=== PATIENT | male | born 1975 | race Caucasian/White ===

== ENCOUNTER 2018-04-17 06:51 | Emergency (ER) | payer BC, SELFPAY ==
[2018-04-17 06:57] VITALS: BP 139/86; PULSE 75; RESP 18; TEMP 36.4; O2SAT 98
--- NOTE | 2018-04-17 07:05 | DI.CT_ITS ---
SYMPTOMS/DIAGNOSIS: LEFT SUBMANDIBULAR SWELLING AND PAIN NECK CT: There is airway narrowing extending from the nasopharynx through the glottis. No focal abscess or hematoma is seen. The findings may be secondary to diffuse inflammation and edema. The submandibular and parotid glands, as well as thyroid, are unremarkable. The lung apices appear clear. No adenopathy is seen. The orbits, sinuses and visualized portions of the brain, as well as mastoid air cells, are unremarkable. No vascular stenosis is seen. IMPRESSION: Airway narrowing without evidence of a focal abscess or mass. The findings may be secondary to diffuse inflammation and/or edema.
--- NOTE | 2018-04-17 07:11 | ED.GENADUL_ITS ---
Discharge Plan Disposition Patient Disposition: HOME Discharge Details Chief Complaint: Sorethroat Clinical Impression: Acute streptococcal pharyngitis Primary Care Provider: Zev Negrete ED Provider: Rubin Bennett Home Meds and New Rx's Prescriptions: No Action No Known Home Meds RF: 0 Discharge Instructions Instructions: Pharyngitis (ED) Additional Instructions: Please drink plenty of fluid and allow for plenty of rest. Take ibuprofen 600 mg every 6 hours as needed for pain and inflammation. Please contact your primary care physician to arrange follow-up. Return to the ER for any worsening or new concerning symptoms. Stand Alone Forms: Work Release Discharge Data Discharge Date/Time-TO BE ENTERED AT DEPARTURE: 04/17/18 09:11 Medical Decision Making <Edmar Alcocer MD - Last Filed: 04/17/18 07:59> 43-year-old male presents from home with severe left-sided throat discomfort and swelling this morning. He is afebrile and well-appearing. Differential diagnosis includes streptococcal or other pharyngitis, retropharyngeal or danger space infection. IV access was established, strep screening obtained, patient referred for laboratory testing and CT imaging of neck. Does have positive rapid strep test. His laboratories are notable for unremarkable CBC and a creatinine of 1.3 for which I will encourage him to have an outpatient recheck. To be signed out to Dr. Bennett pending review of his CT scan. <Rubin Bennett MD - Last Filed: 04/20/18 21:42> CT interpreted by radiology: The nasopharynx and oropharynx appear effaced, the effacement is likely reflecting diffuse pharyngeal mucosal edema/inflammation, rather than focal and no obvious peritonsillar or pharyngeal abscess is evident. At the level of the supraglottic trachea and the hypopharynx the airway is narrowed and clinical correlation recommended to assess for respiratory difficulties which may reflect a narrowed upper airway. Patient reassessed remained stable. He notes some improvement in his speech, less hoarse. Speaking clearly and with no respiratory difficulty. Strep positive. Plan at this time is to treat with penicillin IM for strep pharyngitis. Patient has received decadron. I will have care management assist in arranging routine outpatient primary care physician follow-up HPI <Edmar Alcocer MD - Last Filed: 04/17/18 07:59> General Mode of arrival: ambulatory . Date/Time Provider Initiated Documentation: 04/17/18 06:58 . Limitations to Documentation: no limitations . Information obtained by: patient . History of Present Illness 43 year old M presents to the emergency department with the chief complaint of Left throat pain, described as severe, Quality is described as aching, and is localized to the neck and left. Patient reports no radiation. and it has been constant. No relieving factors improve symptom(s), Other factors that worsen symptoms (Worse with swallowing) . HPI Narrative: This is a 43-year-old male who states that he awoke today with severe left throat pain and swelling. He has been able to swallow but it increases the discomfort. He has had mild hoarseness to his voice. A Will endorse a recent upper respiratory illness Related Data Home Medications Medication Instructions Recorded Confirmed Unknown [No Known Home Meds] 04/02/17 04/17/18 Allergies Allergy/AdvReac Type Severity Reaction Status Date / Time No Known Drug Allergies Allergy Verified 04/17/18 06:57 General Stated Complaint: Sorethroat PUMA: 5 Review of Systems <Edmar Alcocer MD - Last Filed: 04/17/18 07:59> Review of Systems 6 systems reviewed and otherwise - Exam <Edmar Alcocer MD - Last Filed: 04/17/18 07:59> Narrative Exam Narrative: GEN: awake, alert, oriented 3. Pleasant, well groomed, interactive. HEAD: Normocephalic, atraumatic ENT: Mucous membranes moist, oropharynx with left greater than right erythema, slightly prominent left tonsil, External ear exam unremarkable, tympanic membranes clear bilaterally EYES: PERRL, EOMI NECK: Full ROM, tender left submandibular anterior lymphadenopathy, no menigismus CHEST/RESP: Nontender, clear to auscultation bilateral, no wheeze/rhonchi/rales CARDIOVASCULAR: RRR, no murmur, rub tommy. 2+ Rad pulse bilateral ABDOMEN: Soft, nontender, no mass. +Bowel sounds EXT: Full ROM, no edema, no rash Neuro: Grossly normal neurologic exam, conversant, interactive. Psych: Speech fluent, thoughts congruent, affect normal Course <Edmar Alcocer MD - Last Filed: 04/17/18 07:59> Vital Signs Temperature 36.4 C L 04/17/18 06:57 Pulse 75 04/17/18 06:57 Respiratory Rate 18 04/17/18 06:57 Blood Pressure 139/86 04/17/18 06:57 Pulse Oximetry 98 04/17/18 06:57 Temperature 36.4 C L 04/17/18 06:57 Temperature Source Temporal Artery Scan 04/17/18 06:57 Pulse 75 04/17/18 06:57 Respiratory Rate 18 04/17/18 06:57 Respiratory Effort 04/17/18 06:57 Blood Pressure 139/86 04/17/18 06:57 Blood Pressure Position Sitting 04/17/18 06:57 Pulse Oximetry 98 04/17/18 06:57 Oxygen Delivery Method Room Air 04/17/18 06:57 Oxygen Flow Rate 0 04/17/18 06:57 Sign Out <Edmar Alcocer MD - Last Filed: 04/17/18 07:59> Sign Out Data: Sign Out Comment: Please follow-up CT results. Reexamination. Last updated by Edmar Alcocer MD at 04/17/18 07:58
[2018-04-17 07:32] LABS: Abs Immature Grans 0.02 k/cumm (0.0-0.09); Absolute Basophil Count 0.02 k/cumm (0.0-0.2); Absolute Eosinophil Count 0.17 k/cumm (0.0-0.7); Absolute Lymphocyte Count 2.26 k/cumm (1.2-3.4); Absolute Monocyte Count 0.35 k/cumm (0.11-0.7); Absolute Neutrophil Count 3.57 k/cumm (1.2-6.7); Basophils % 0.3; Eosinophils % 2.7; HCT 48.4 % (40.0-50.0); HGB 16.9 g/dL (13.5-17.5); Immature Grans % 0.3; Lymphocytes % 35.4; Mean Corp. HGB Concentration 34.9 g/dL (32.0-36.0); Mean Corpuscular Hemoglobin 29.5 pg (27.0-33.0); Mean Corpuscular Volume 84.5 fL (80-95); Mean Platelet Volume 9.7 fL (8.0-11.0); Monocytes % 5.5; Neutrophils % 55.8; Platelet Count 253 x1000/uL (130-400); RBC 5.73 m/cumm (4.50-6.00); White Blood Cell Count 6.39 k/cumm (4.4-10.8)
[2018-04-17] MEDS: Ketorolac 30 MG/ML VIAL IVP (07:39)
[2018-04-17] MEDS: Normal Saline 1,000 ML 1000 ML IV (07:39)
[2018-04-17] MEDS: Dexamethasone 10 MG/ML VIAL IVP (07:39)
[2018-04-17] MEDS: Normal Saline Flush 10 ML SYR 30 ML (07:41)
[2018-04-17 07:44] LABS: ALT 55 U/L (12-78); AST 27 U/L (15-37); Albumin 4.5 g/dL (3.4-5.0); Alkaline Phosphatase 85 U/L (46-116); Anion Gap 8.8 mmol/L (3-11); BUN 17 mg/dL (7-18); CO2 28.2 mmol/L (21.0-32.0); CREATININE 1.35 mg/dL (0.70-1.30); Calcium 9.2 mg/dL (8.5-10.1); Chloride 103 mmol/L (98-107); Estimated GFR 57.68 (mL/min/1.73m2); Glucose 91 mg/dL (70-100); Potassium 4.6 mmol/L (3.5-5.1); Sodium 140 mmol/L (136-145); Total Protein 7.9 g/dL (6.4-8.2)
[2018-04-17] MEDS: Omnipaque 350 MG/ML 100 ML BTL IJ (08:07)
--- NOTE | 2018-04-17 08:21 | DI.VRAD_ITS ---
EXAM: CT Neck With Intravenous Contrast EXAM DATE/TIME: 04/17/2018 7:07 AM CLINICAL HISTORY: 43 years old, male; Signs and symptoms; Mass, lump, or swelling in neck TECHNIQUE: Axial computed tomography images of the neck with intravenous contrast. All CT scans at this facility use at least one of these dose optimization techniques: automated exposure control; mA and/or kV adjustment per patient size (includes targeted exams where dose is matched to clinical indication); or iterative reconstruction. CONTRAST: 90 ml of [id number] administered intravenously. COMPARISON: No relevant prior studies available. FINDINGS: Nasopharynx: The nasopharynx and oropharynx appear effaced. The effacement is diffuse likely reflecting diffuse pharyngeal mucosal edema/inflammation, rather than focal and no obvious peritonsillar or pharyngeal abscess is evident. Oropharynx: See Nasopharynx Finding. Hypopharynx: Normal. Larynx: Normal. Normal epiglottis. Trachea: At the level of the supraglottic trachea and in the hypopharynx and the airway is narrowed and clinical correlation recommended to assess for respiratory difficulties which may reflect a narrowed upper airway. Retropharyngeal space: Normal. Submandibular/Parotid glands: Normal. Glands are normal in size. Thyroid: Normal. No enlarged or calcified nodules. Bones/joints: Normal. No acute fracture. Soft tissues: Normal. No significant soft tissue swelling. Vasculature: No acute findings. Lymph nodes: Normal. No lymphadenopathy. Lung apices: Normal as visualized. IMPRESSION: 1. The nasopharynx and oropharynx appear effaced. The effacement is diffuse likely reflecting diffuse pharyngeal mucosal edema/inflammation, rather than focal and no obvious peritonsillar or pharyngeal abscess is evident. 2. At the level of the supraglottic trachea and in the hypopharynx the airway is narrowed and clinical correlation recommended to assess for respiratory difficulties which may reflect a narrowed upper airway. Dictated and Authenticated by: Simeon Lau MD. Ordering:KATHERINE CONTRERAS MD
--- NOTE | 2018-04-18 07:23 | PDOC.ERCMPRO ---
Care Management Progress Note 04/18-Dr. Terri Bennett requested assistance with a new PCP. Patient seen for sore throat, pharyngitis. 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 Referral faxed to [facility] this am.
--- NOTE | 2018-04-18 07:24 | CMPROGNOTE_ITS ---
Care Management Progress Note 04/18-Dr. Terri Bennett requested assistance with a new PCP. Patient seen for sore throat, pharyngitis. 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 Referral faxed to [facility] this am.
== END 2018-04-17 09:11 | disposition home or self-care (01) ==
PROVIDERS: Emergency Medicine; Emergency Provider Student in an Organized Health Care Education/Training Program; PCP Family Medicine
DX: J02.0 Streptococcal pharyngitis (principal); J39.2 Other diseases of pharynx; R49.0 Dysphonia
CPT/HCPCS: 36415; 70491; 80053; 87880; 96361; 96372; 96374; 96375; 99285; 85025; 99284; J0561; J1100; J1885; J3490

== ENCOUNTER 2019-01-04 18:35 | Emergency (ER) | payer BC, SELFPAY ==
[2019-01-04 18:39] VITALS: BP 151/96; PULSE 91; RESP 16; TEMP 37.2; O2SAT 96
--- NOTE | 2019-01-04 18:47 | DI.RAD_ITS ---
SYMPTOM/DIAGNOSIS: LACERATION FROM GLASS LEFT LEG: No acute fracture or dislocation is seen. No radiopaque foreign bodies are seen in the soft tissues. There is a defect seen in the soft tissues at the lateral aspect of the leg consistent with a laceration. IMPRESSION: No radiopaque foreign bodies. No acute fracture or dislocation.
--- NOTE | 2019-01-04 18:48 | ED.GENADUL_ITS ---
Discharge Plan Disposition Patient Disposition: HOME Discharge Details Chief Complaint: Laceration Clinical Impression: Laceration of left leg Primary Care Provider: None,None ED Provider: Rubin Bennett Home Meds and New Rx's Prescriptions: No Action No Known Home Meds RF: 0 Discharge Instructions Instructions: Laceration (ED) Additional Instructions: Please take ibuprofen over the counter. Take 600mg by mouth every 6 hours as needed for pain. Please return or see her primary care physician for suture removal in 12 to 14 days. Your blood pressure was elevated today at 151/96. Be sure to follow-up with your primary care physician regarding this elevated blood pressure. Additional diagnostics and treatment may be necessary if it persists. Return to the ER for any worsening or new concerning symptoms. Discharge Data Discharge Date/Time-TO BE ENTERED AT DEPARTURE: 01/04/19 20:37 Medical Decision Making <Rubin Bennett MD - Last Filed: 01/15/19 03:18> 1854: 43-year-old male here with laceration to his left lower extremity on glass. Last tetanus was 2016. Plan to obtain x-ray to assess for glass foreign body. Plan for primary closure after copious sterile saline irrigation. HPI <Rubin Bennett MD - Last Filed: 01/15/19 03:18> General Mode of arrival: ambulatory . Date/Time Provider Initiated Documentation: 01/04/19 18:47 . Limitations to Documentation: no limitations . Information obtained by: patient . HPI Narrative: 43-year-old male presents with chief complaint of laceration. Patient notes that he was walking near some broken glass and cut his left leg on the glass. He sustained a severe laceration to the skin. This occurred just prior to arrival. Laceration has been bleeding mildly. Bleeding improved with dressing. Related Data Home Medications Medication Instructions Recorded Confirmed Unknown [No Known Home Meds] 04/02/17 04/17/18 Allergies Allergy/AdvReac Type Severity Reaction Status Date / Time No Known Drug Allergies Allergy Verified 04/17/18 06:57 General Stated Complaint: Laceration PUMA: 4 Review of Systems <Rubin Bennett MD - Last Filed: 01/15/19 03:18> Musculoskeletal Denies numbness and Denies tingling Integumentary/Breasts Reports as per HPI Neurologic Denies numbness and Denies tingling PFSH <Rubin Bennett MD - Last Filed: 01/15/19 03:18> Surgical History Cholecystectomy Social History Smoking/Tobacco Use Status: Never Alcohol Intake: current Drug use: Never Do you feel safe at home: Yes Do you feel safe in your relationship?: Yes Exam <Rubin Bennett MD - Last Filed: 01/15/19 03:18> Const General: cooperative and no acute distress Cardio Rate: regular rate and not tachycardic Rhythm: regular rhythm Pulses: posterior tibial pulses present on the right 2+ Skin Trauma: laceration (Left lateral mid lower leg 3cm) Neuro General: alert, awake and tone normal Sensory Exam: no sensory deficits noted (distal LLE) Extrem General: no edema and other (LLE distal motor and sensation intact) Left lower extremity: lower leg Details: laceration (see skin) Course <Rubin Bennett MD - Last Filed: 01/15/19 03:18> Vital Signs Temperature 37.2 C 01/04/19 18:39 Pulse 91 H 01/04/19 18:39 Respiratory Rate 16 01/04/19 18:39 Blood Pressure 151/96 H 01/04/19 18:39 Pulse Oximetry 96 01/04/19 18:39 Temperature 37.2 C 01/04/19 18:39 Temperature Source Temporal Artery Scan 01/04/19 18:39 Pulse 91 H 01/04/19 18:39 Respiratory Rate 16 01/04/19 18:39 Respiratory Effort 01/04/19 18:39 Blood Pressure 151/96 H 01/04/19 18:39 Blood Pressure Position Sitting 01/04/19 18:39 Pulse Oximetry 96 01/04/19 18:39 Oxygen Delivery Method Room Air 01/04/19 18:39 Oxygen Flow Rate 0 01/04/19 18:39 <YEE Avila - Last Filed: 01/04/19 20:34> Laceration Laceration 1: Site: lower extremity Side (If applicable): left Size (cm): 6 Description: irregular Depth: simple, single layer Local Anesthetic: Lidocaine 1% and with Epi Amount of anesthesia used (mL): 5 Pre-repair: wound explored, irrigated extensively and wound margins revised Skin layer closed with: nylon Size (cm): 4-0 Number of sutures: 8 Technique: simple, interrupted
--- NOTE | 2019-01-04 19:19 | DI.VRAD_ITS ---
EXAM: XR Left Tibia and Fibula EXAM DATE/TIME: 01/04/2019 7:03 PM CLINICAL HISTORY: 43 years old, male; Other: Laceration glass TECHNIQUE: Imaging protocol: XR Left tibia and fibula. Views: 2 views. COMPARISON: No relevant prior studies available. FINDINGS: Bones/joints: No acutely displaced fracture or dislocation. Normal anatomical alignment. Soft tissues: Lateral soft tissue laceration appreciated in the mid lower leg with associated soft tissue swelling. No radiopaque foreign bodies. IMPRESSION: Lateral soft tissue lower leg laceration. Dictated and Authenticated by: Chris Hutchison MD. Ordering:ROMAN Conklin MD
[2019-01-04 20:33] VITALS: BP 151/96; PULSE 91; RESP 16; TEMP 37.2; O2SAT 96
== END 2019-01-04 20:37 | disposition home or self-care (01) ==
LOC: ER 19:10
PROVIDERS: Emergency Provider Student in an Organized Health Care Education/Training Program
DX: S81.812A Laceration without foreign body, left lower leg, initial encounter (principal); W25.XXXA Contact with sharp glass, initial encounter
CPT/HCPCS: 12002; 99283; 73590; 99282

== ENCOUNTER 2019-01-23 09:09 | Emergency (ER) | payer BC, SELFPAY ==
[2019-01-23 09:14] VITALS: PULSE 72; RESP 15; TEMP 37
[2019-01-23 09:18] VITALS: PULSE 72; RESP 15; TEMP 37
--- NOTE | 2019-01-23 09:19 | ED.GENADUL_ITS ---
Discharge Plan Disposition Patient Disposition: HOME Condition: Good Discharge Details Chief Complaint: SutureRem Clinical Impression: Encounter for removal of sutures Primary Care Provider: None,None ED Provider: Augusta Coughlin Home Meds and New Rx's Prescriptions: No Action No Known Home Meds RF: 0 Discharge Instructions Instructions: Stitches Removal (ED) Additional Instructions: Continue to monitor for signs of infection including redness, warmth, drainage, increased pain, fever/chills. Wound appears to be healing well. Follow-up with primary care as needed. Seek care urgently once again if you develop new or worsening symptom Medical Decision Making Patient is a 44-year-old male presented today with chief complaint of suture removal. Patient had 8 sutures placed by myself 14 days after suture placement. Wound appears to be healing well no signs of infection. He reports he has been following suture instruction. Denies any fevers or chills. No pain. He does have a small area of swelling, primarily concerning for a fascial defect along the lateral most border of this. No pain. No fluctuance. This is not consistent with infection. I did advise that this fascial defect may continue to be persistent but so long as it is not painful he does not need an intervention. I did advise that he was reassessed in the future should begin to bother him. Sutures were removed by myself. #8 stitches were removed without difficulty. Patient tolerated this well. Wound edges are well approximated. We discussed new/worsening symptoms when to seek care urgently once again. All his questions and concerns were addressed and he is in agreement this plan. HPI General Mode of arrival: ambulatory . Date/Time Provider Initiated Documentation: 01/23/19 09:11 . Limitations to Documentation: no limitations . Information obtained by: patient and RN notes reviewed . History of Present Illness 44 year old M presents to the emergency department with the chief complaint of suture removal, described as mild (no pain), Patient started experiencing this day(s) Patient notes no other symptoms.; denies diaphoresis, fever/chills, rash and weakness. Patient did receive the following treatments prior to arrival, none Related Data Home Medications Medication Instructions Recorded Confirmed Unknown [No Known Home Meds] 04/02/17 04/17/18 Allergies Allergy/AdvReac Type Severity Reaction Status Date / Time No Known Drug Allergies Allergy Verified 04/17/18 06:57 General Stated Complaint: SutureRem PUMA: 5 Review of Systems Constitutional Reports as per HPI, Denies chills, Denies fever(s) and Denies weakness Musculoskeletal Reports as per HPI and Denies tingling Integumentary/Breasts Reports as per HPI Neurologic Denies sensory deficit, Denies tingling and Denies weakness PFS Surgical History Cholecystectomy Social History Smoking/Tobacco Use Status: Never Alcohol Intake: current Drug use: Never Do you feel safe at home: Yes Do you feel safe in your relationship?: Yes Exam Const General: cooperative, healthy appearing, comfortable, no acute distress and well developed Nutritional Appearance: average body habitus and well nourished Orientation: alert and awake Resp Effort & Inspection: normal respiratory effort, able to speak in complete sentences and no respiratory distress Cardio Rate: regular rate Rhythm: regular rhythm Skin Trauma: laceration (healing well, no signs of infection) Neuro General: alert and awake Cognition: normal cognition Speech: speech normal Gait: normal gait Motor: muscle tone normal throughout Extrem Left lower extremity: normal to inspection (healing laceration as above), full ROM and no joint enlargement Psych Appearance: grossly normal and well kempt Mental Status: mental status grossly normal Speech and Movement: speech and movement normal Course Vital Signs Temperature 37 C 01/23/19 09:14 Pulse 72 01/23/19 09:14 Respiratory Rate 15 01/23/19 09:14 Temperature 37 C 01/23/19 09:14 Pulse 72 01/23/19 09:14 Respiratory Rate 15 01/23/19 09:14 Respiratory Effort 01/23/19 09:15
== END 2019-01-23 09:27 | disposition home or self-care (01) ==
PROVIDERS: Emergency Provider Physician Assistant
DX: S81.812D Laceration without foreign body, left lower leg, subsequent encounter (principal); W45.8XXD Other foreign body or object entering through skin, subsequent encounter; Z48.02 Encounter for removal of sutures

== ENCOUNTER 2019-03-06 11:40 | Emergency (ER) | payer BC, SELFPAY ==
[2019-03-06] VITALS (41 sets, daily range): BP systolic 116–152; BP diastolic 79–107; PULSE 71–88; RESP 14–47; TEMP 36.8; O2SAT 92–98
--- NOTE | 2019-03-06 11:54 | ED.GENADUL_ITS ---
Discharge Plan Disposition Patient Disposition: HOME Condition: Stable Discharge Details Chief Complaint: Chest Pain Clinical Impression: Chest pain Primary Care Provider: None,None ED Provider: Marshall Lim Home Meds and New Rx's Prescriptions: No Action No Known Home Meds RF: 0 Discharge Instructions Instructions: Chest Pain (ED) Additional Instructions: I have placed you on our follow up list to see a primary care provider and discuss having a stress test if your pain becomes worse, you have nausea with vomit or difficulty breathing return to the emergency department Medical Decision Making 44 yo male with no chronic medical problems, never smoker and no family hx of heart disease per pt who comes in with chief complaint of chest pressure since last night that intermittently radiates to the left shoulder. No vomit, pain with exertion and no prior hx of the same. He has no abdominal tenderness, clear lungs and speaking in full sentence sin no distress. He is wells low and perc negative so doubt PE. EKG sinus without ischemic findings, HEArt score is 1, will send troponin. no tearing back pain and normal vsacular exam so doubt dissection. pt remains pain free and apperas well, xray and labs unremarkable. Will obtain delta troponin and ecg pt remains asymptomatic and second trop and ekg unchanged. Given low heart score will d/c and have him f/u with pcp, placed on f/u list to get set up with one within a week for chest pain. Return precautions also given Differential Diagnosis esophageal spasm, nstemi,ptx Medical Records Medical records reviewed: Yes I reviewed the patient's medical records. Imaging Data Radiologic Study: Attestation: I personally reviewed and interpreted this imaging study as follows: Imaging: X-Ray Radiologist's impression: no acute findings Lab Data Lab results reviewed: Yes I reviewed the patient's lab results. ECG Data Attestation: I personally reviewed and interpreted this ECG (s) as follows: Prior ECG tracings: not available for review Interpretation: sinus rhythm, rate of 85, pr 156, no acute st t wave ischemic findings 2nd ekg shows sinus rhythm, rate of 73, pr 176, no acute st t wave ischemc findings HPI General Mode of arrival: ambulatory . Date/Time Provider Initiated Documentation: 03/06/19 11:42 . Limitations to Documentation: no limitations . Information obtained by: patient . History of Present Illness 44 year old M presents to the emergency department with the chief complaint of chest pain, described as mild, and is localized to the chest. Patient reports no radiation. Patient started experiencing this day(s) (1) and it has been constant. No relieving factors improve symptom(s), No exacerbating factors reported . Patient did receive the following treatments prior to arrival, none Related Data Home Medications Medication Instructions Recorded Confirmed Unknown [No Known Home Meds] 04/02/17 03/06/19 Allergies Allergy/AdvReac Type Severity Reaction Status Date / Time No Known Drug Allergies Allergy Verified 03/06/19 11:51 General Stated Complaint: Chest Pain PUMA: 2 Review of Systems Review of Systems All systems reviewed & are unremarkable except as noted in HPI and below Constitutional Denies chills, Denies fever(s) and Denies weakness Cardiovascular Denies dyspnea Respiratory Denies cough and Denies dyspnea Gastrointestinal Denies abdominal pain, Denies nausea and Denies vomiting Musculoskeletal Denies joint swelling Integumentary/Breasts Denies rash Neurologic Denies weakness [facility] Social History Smoking/Tobacco Use Status: Never Alcohol Intake: current Alcohol Intake frequency: a few times a week Alcohol type: beer Drug use: Never Substance use type: does not use Do you feel safe at home: Yes Do you feel safe in your relationship?: Yes Exam Const General: no acute distress Orientation: alert HENMT Head: normal to inspection Ears: external ears normal General nose exam: external nose normal Mouth: moist mucous membranes Eyes General: appearance normal, both eyes and all related structures Neck Neck: normal visual inspection Resp Effort & Inspection: normal respiratory effort and able to speak in complete sentences Cardio Rate: regular rate Skin General skin exam: no rashes or lesions noted Neuro General: alert and oriented x3 Extrem General: normal to inspection Psych Mental Status: mental status grossly normal Course Vital Signs Temperature 36.8 C 03/06/19 11:45 Pulse 86 03/06/19 11:45 Respiratory Rate 20 03/06/19 11:45 Blood Pressure 152/107 H 03/06/19 11:45 Pulse Oximetry 98 03/06/19 11:45 Temperature 36.8 C 03/06/19 11:45 Temperature Source Skin 03/06/19 11:45 Pulse 86 03/06/19 11:45 Respiratory Rate 20 03/06/19 11:45 Respiratory Effort Non-Labored 03/06/19 11:49 Blood Pressure 152/107 H 03/06/19 11:45 Blood Pressure Position Sitting 03/06/19 11:45 Pulse Oximetry 98 03/06/19 11:45 Oxygen Delivery Method Room Air 03/06/19 11:45 Oxygen Flow Rate 0 03/06/19 11:45
[2019-03-06] MEDS: Aspirin 81 MG CHEW 324 MG CH (11:55)
[2019-03-06 11:58] LABS: Absolute Basophil Count 0.03 k/cumm (0.0-0.2); Absolute Eosinophil Count 0.07 k/cumm (0.0-0.7); Absolute Lymphocyte Count 2.11 k/cumm (1.2-3.4); Absolute Monocyte Count 0.36 k/cumm (0.11-0.7); Absolute Neutrophil Count 3.72 k/cumm (1.2-6.7); Basophils % 0.5; Eosinophils % 1.1; HCT 49.5 % (40.0-50.0); Lymphocytes % 33.5; Mean Corp. HGB Concentration 34.3 g/dL (32.0-36.0); Mean Corpuscular Hemoglobin 29.2 pg (27.0-33.0); Mean Corpuscular Volume 84.9 fL (80-95); Mean Platelet Volume 9.9 fL (8.0-11.0); Monocytes % 5.7; Neutrophils % 59.2; Platelet Count 286 x1000/uL (130-400); RBC 5.83 m/cumm (4.50-6.00); RBC Distribution Width 13.1 % (11.8-14.1); White Blood Cell Count 6.29 k/cumm (4.4-10.8)
--- NOTE | 2019-03-06 12:06 | DI.RAD_ITS ---
SYMPTOMS/DIAGNOSIS: CHEST PAIN/PRESSURE PA AND LATERAL CHEST: The cardiac and mediastinal contours have a normal appearance. The lungs are well inflated and clear. No infiltrate or effusion is seen. IMPRESSION: Negative chest x-ray.
[2019-03-06 12:11] LABS: PTT Activated 25.6 sec (21.0-31.4); Prothrombin Time 10.4 sec (9.3-11.0)
[2019-03-06 12:13] LABS: ALT 80 U/L (16-63); AST 36 U/L (15-37); Albumin 4.8 g/dL (3.4-5.0); Alkaline Phosphatase 83 U/L (46-116); Anion Gap 10.3 mmol/L (3-11); BUN 14 mg/dL (7-18); Bilirubin, Total 2.7 mg/dL (0.2-1.0); CO2 26.7 mmol/L (21.0-32.0); CREATININE 1.23 mg/dL (0.70-1.30); Calcium 9.5 mg/dL (8.5-10.1); Chloride 103 mmol/L (98-107); Glucose 100 mg/dL (70-100); Lipase 146 U/L (73-393); Magnesium 2.1 mg/dL (1.8-2.4); Potassium 4.1 mmol/L (3.5-5.1); Sodium 140 mmol/L (136-145); Total Protein 8.4 g/dL (6.4-8.2)
[2019-03-06 12:16] LABS: Troponin I < 0.05 ng/mL (0.00-0.06)
[2019-03-06 15:26] LABS: Troponin I < 0.05 ng/mL (0.00-0.06)
== END 2019-03-06 15:37 | disposition home or self-care (01) ==
PROVIDERS: Emergency Provider Emergency Medicine
DX: R07.89 Other chest pain (principal)
CPT/HCPCS: 36415; 80053; 83690; 93005; 99285; 71046; 83735; 84484; 85025; 85610; 85730; 93010; J3490

== ENCOUNTER 2019-03-18 13:52 | Outpatient (CLI) | payer BC, SELFPAY ==
--- NOTE | 2019-03-18 08:30 | ETT_ITS ---
*[facility]* *[facility]* [address] [place] [address] Stress Electrocardiography Mikel protocol Date of study: 03/18/2019 *PATIENT PRESENTATION* Height: 180.3cm (71in) Blood Pressure: Weight: 113.6kg (250lb) BSA: 2.43m^2 Ordering physician: Jack Julian Impressions: Normal study after maximal exercise. Summary: 1. Stress ECG conclusions: The stress ECG is negative. Rojas treadmill score: 10. This score predicts a low risk of cardiac events. 2. Stress: The target heart rate was achieved. Indication: R07.9. History: REASON FOR TESTING: PATIENT TESTING TODAY FOR FURTHER RISK STRATIFICATION. HE PRESENTED TO THE ER 03/06/19 WITH MIDSTERNAL TO LEFT SIDED SHARP CHEST PAIN THAT LASTED TWENTY MINUTES AND WENT AWAY ON ITS OWN. HE REPORTS THE NEXT DAY HE HAD CHEST AND LEFT SHOULDER TIGHTNESS. NO OTHER EPISODES REPORTED. HE DENIES CHEST PAIN UPON ARRIVAL TO TESTING TODAY. SIGNIFICANT PAST MEDICAL HISTORY: GERD SMOKING STATUS: NEVER. EXERCISE ROUTINE: PATIENT EXERCISES ON [employer] BIKE AND BOWFLEX 2 TO 3 TIMES PER WEEK FOR ONE HOUR EACH SESSION. Risk factors: Family history of coronary artery disease. Obesity. ALLERGIES: NO KNOWN ALLERGIES. MEDICATIONS: NO MEDICATIONS REPORTED. . Protocol: Mikel protocol. Baseline ECG: SINUS RHYTHM. HR 75 BPM. Stress protocol: + +---+ + !Stage !HR !BP (mmHg) ! + +---+ + !Baseline supine !75 !142/90 (107) ! + +---+ + !Baseline standing !90 !132/98 (109) ! + +---+ + !Stage I; 1.7mph, 10degrees; 3 min !114!148/84 (105) ! + +---+ + !Stage II; 2.5mph, 12degrees; 3 min !126!168/100 (123)! + +---+ + !Stage III; 3.4mph, 14degrees; 3 min!148!182/100 (127)! + +---+ + !Peak stress !174! ! + +---+ + !Recovery; 1 min !140!182/100 (127)! + +---+ + !Recovery; 3 min !107!168/98 (121) ! + +---+ + !Recovery; 6 min !109!160/96 (117) ! + +---+ + !Recovery; 10 min !108!152/90 (111) ! + +---+ + !Recovery; 12 min !110!158/100 (119)! + +---+ + * Stress results: STRESS TEST ENDED IN 12 MINUTES DUE TO FATIGUE. HYPERTENSIVE AT BASELINE. NORMAL HEART RATE AND BLOOD PRESSURE RESPONSE TO EXERCISE. HEART RATE REMAINED ELEVATED THROUGHOUT 12 MINUTES OF RECOVERY. MAX HEART RATE: 174. 98 % OF TARGET HEART RATE ACHIEVED. MET'S: 13.48. NO ECTOPY. NO ANGINA. NO SIGNIFICANT ST SEGMENT CHANGES. ABOVE AVERAGE FUNCTIONAL CAPACITY. The target heart rate was achieved. The rate-pressure product for the peak heart rate and blood pressure was 87283tq Hg/min. Stress ECG: The stress ECG is negative. Rojas treadmill score: 10. This score predicts a low risk of cardiac events. Study data: Marshall Weiss MD supervised and was readily available during the procedure. This study was interpreted by [facility]. Study status: Routine. Consent: The risks, benefits, and alternatives to the procedure were explained to the patient and informed consent was obtained. Procedure: Initial setup. A baseline ECG was recorded. Surface ECG leads and manual cuff blood pressure measurements were monitored. Heart sounds: Normal. Lung sounds: Normal. Treadmill exercise testing was performed using the Mikel protocol. Study completion: The patient tolerated the procedure well and was discharged from the lab. Discharge: The patient left the laboratory in stable condition. Birthdate: Patient birthdate: 1975. Sex: Gender: male. Study date: Study date: 03/18/2019. Study time: 00:01 AM. Electronically signed by Marshall Weiss MD 03/18/2019 19:39
== END 2019-03-18 14:12 ==
PROVIDERS: Visit Provider Family Medicine
DX: R07.9 Chest pain, unspecified (principal); K21.9 Gastro-esophageal reflux disease without esophagitis; Z82.49 Family history of ischemic heart disease and other diseases of the circulatory system
CPT/HCPCS: 93017

== ENCOUNTER 2020-02-04 01:30 | Outpatient (CLI) | payer OTHER, BC, SELFPAY ==
--- NOTE | 2020-02-04 14:00 | DI.RAD_ITS ---
EXAM: XR ANKLE RT COMPLETE CLINICAL HISTORY: history of ankle fracture.z87.81. TECHNIQUE: 2D digital imaging was performed. COMPARISON: No exams were available for comparison FINDINGS: BONES: No acute fracture is present. No bony destructive lesion is seen. Small plantar calcaneal spu r. JOINTS: The ankle mortise is normally aligned. SOFT TISSUE: Normal. IMPRESSION: Unremarkable radiographs of the right ankle. DATA REPOSITORY: RADIATION DOSE DELIVERED:
== END 2020-02-04 01:50 ==
PROVIDERS: PCP Family Medicine; Visit Provider Orthopaedic Surgery
DX: Z87.81 Personal history of (healed) traumatic fracture (principal)
CPT/HCPCS: 73610

== ENCOUNTER 2023-09-12 04:50 | Outpatient (CLI) | payer BC, SELFPAY ==
--- NOTE | 2023-09-12 15:10 | TELEFU_ITS ---
Date of service: 09/12/23 Time of Service: 14:00 Nutrition Note NOTE: Robles arrives for nutrition counseling towards weight management - he has been struggling more than he feels he should to see regular wt loss. 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 He lives at home with his - his children are older and independent now. He is not a choosy eater - will eat everything but fish/seafood. Reports no sleep disturbances and bedtime is usually 730pm-5am. He takes a multivitamin and 5,000IU vitamin D (going down to 2,000IU after a month). He takes a fiber supplement. He reports no food allergies, no problems with constipation/diarrhea. He states he is active at baseline but has torn his quadricep recently (comes in with boot on his leg) but hasn't been active lately due to the injury. He states he might see a modest loss when he is being extremely diligent with his eating and exercising. He has question if intermittent fasting has any benefits. Anthropometrics on 07/18/23: 120.2kg/264lbs, 71.5/181.6cm; BMI 36.3kg/m2; UBW: stated as 228-230. Pt states he is now 275pounds. Diet recall: Breakfast is usually 1 cup cooked quick oats with skim milk and 1 Tbsp pb or 2-3 scrambled eggs and 2 slices [place] rushing (sometimes salsa). Lunch varies and dinner is usually steamed veggies, meat protein. Estimated energy needs: 2732kcals (REE x1.3 activity factor -2200 for wt loss and considering limited activity currently), 110-165g protein (20-30% of kcals), 2732mL of fluid (1mL per required kcal) On evaluating his diet and food choices, it is apparent that his fiber intake is low and I highlighted the importance of getting fiber needs met with whole foods more often because of the goal of getting micronutrients from them as well, where as fiber supplements lack nutrition. Education/Intervention: Suggested minimum goal of 35 grams per day. Reviewed his two breakfast choices and how they are low in fiber. Encouraged veggies at every meal, not just at dinner- and also selecting high fiber foods outside of veggies - fruit, legumes, nuts and seeds, intact grains (suggested slower carbs like steel cut oats instead of quick oats). Encouraged considering fish oil/omega 3 supplement if interested, as his diet is low in marine n-3 oils. I do not see labs more recently than 2019, but between low omega 3 intake, lower intake of fiber from veggies and high animal protein diet, I would suspect some systemic inflammation might be hindering his wt loss efforts - he is on vitamin d for low levels per pt (low levels associated with inflammation). He uses low fat products like skim milk - encouraged moderate use of anti-inflammatory fats like EVOO, avocado oil, avocados, raw nuts and seeds, DHA/EPA supplement and generally start adopting more regular food choices for his menus from an Anti-inflammatory diet concept. Pt was given resources for meal planning more plant-based and along the lines of anti-inflammatory style. Also given his energy and protein needs (and fat recommendation of ~70-90g) to plug in on meal planning website to see how much food this is. I supported Int fasting as long as he meets his nutrition goals for fiber, protein and energy - an eating window that discourages night snacks is a good idea (consider 6am to 6pm a good window for eating). email with summary of our discussion along with resources was sent to pt and he agreed to follow up call x 1month to check on his progress. Time Spent in Nutritional Counseling and Treatment: 30 minutes
== END 2023-09-12 04:51 | disposition home or self-care (01) ==
PROVIDERS: PCP Physician Assistant; Visit Provider Dietitian, Registered
DX: E66.3 Overweight (principal); Z71.3 Dietary counseling and surveillance
CPT/HCPCS: 00123; 97802

== ENCOUNTER 2023-11-14 10:40 | Emergency (ER) | payer BC, SELFPAY ==
[2023-11-14 10:42] VITALS: BP 168/96; PULSE 85; RESP 15; TEMP 36.5; O2SAT 98
--- NOTE | 2023-11-14 10:49 | W.ED.GENAD ---
Discharge Plan Disposition Patient Disposition: Home Condition: Stable Discharge Details Clinical Impression: Tendinitis of flexor tendon of left hand Primary Care Provider: Shyann Garcia ED Provider: Hong Viera Home Meds and New Rx's Prescriptions: No Action No Known Home Meds Discharge Instructions Instructions: Tendinitis (ED) Additional Instructions: You were seen in the emergency department for your left first anger flexor tendon pain without evidence of prior laceration or open wound to suggest infection. There was no acute findings on your x-ray. I think you should remain in a finger splint consistently night and day and sleep with it on for at least 2 weeks. Perform gentle stretching exercises of the tendon, take Tylenol and ibuprofen or apply topical NSAID like Voltaren gel to the area a few times per day. You should seek a referral to hand specialist in the meantime from your primary care provider. Please return for any increasing finger pain, complete numbness, redness to the palm, red streaking up the arm, warmth to touch. Referrals: Shyann Garcia [Primary Care Provider] - Discharge Data Discharge Date/Time-TO BE ENTERED AT DEPARTURE: 11/14/23 11:43 HPI General Date/Time Provider Initiated Documentation: 11/14/23 10:49. HPI Narrative: 48 year-old male presents to ED today by POV/ambulating with a chief complaint of pain in the middle finger of L hand, having ROM deficit and pain with flexion with onset noted one week ago, denies trauma. Quality described as pain in flexor tendon distribution, no prior lacerations, no redness or warmth, no radiation to fever, red streaking up the arm, prior lacerations/bites/trauma to the area, denies numbness/tingling. Severity is described as moderate. Palliating factors include nothing specific attempted. Provoking factors include nothing specific. Patient is R-hand dominant. Patient not anticoagulated. Related Data Home Medications Medication Instructions Recorded Confirmed Unknown [No Known Home Meds] 11/14/23 11/14/23 Allergies Allergy/AdvReac Type Severity Reaction Status Date / Time No Known Allergies Allergy Unverified 11/14/23 10:52 General Stated Complaint: Orthopedic PUMA: 4 Review of Systems All systems reviewed & are unremarkable except as noted in HPI and below Exam Narrative Exam Narrative: GENERAL APPEARANCE: Well-nourished, non-toxic, awake and alert, atraumatic, no acute distress. SKIN: Warm, pink, dry, intact, without rashes/lesions/ulcerations. HEAD: Normocephalic, atraumatic, normal hair distribution for gender/age. EYES: Pupils PERRLA, EOMs intact without nystagmus, normal conjunctiva, no exudates on lids/lashes. ENT: Nares patent, no circumoral cyanosis, no facial swelling NECK: Supple, trachea midline, painless cervical ROM. LUNGS/CHEST: Non-labored respirations, normal A/P diameter, symmetrical expansion, no chest wall deformity HEART (CV/PV): Regular rate, R radial pulse 2+, no peripheral edema, no JVD. ABDOMEN: Soft, non-distended, no guarding. MSK: Normal ROM, no swelling/deformity to bilateral UEs or LEs, moving all extremities without weakness, no cyanosis, spine midline without tenderness, normal curvature. L HAND: Partial limited range of motion left third finger, no redness, no focal nodular swellings in the flexor pulleys, no erythema or warmth to touch, brisk capillary refill, sensation intact, no wrist pain, Tinel's negative NEURO: Mental Status AAOx4 - alert to person, place, time, events No facial droop, no forehead involvement. Motor: No focal weakness - strength 5/5 in bilateral UEs and LEs, proximal and distal, symmetric. Sensory: sensation intact to light touch globally. Gait normal: patient ambulated without ataxia into ED room. PSYCH: euthymic, cooperative, pleasant, appropriate speech Course Vital Signs Vital signs: Vital Signs Temperature 36.5 C 11/14/23 10:42 Pulse 85 11/14/23 10:42 Respiratory Rate 15 11/14/23 10:42 Blood Pressure 168/96 H 11/14/23 10:42 Pulse Oximetry 98 11/14/23 10:42 Temperature 36.5 C 11/14/23 10:42 Temperature Source Tympanic 11/14/23 10:42 Pulse 85 11/14/23 10:42 Respiratory Rate 15 11/14/23 10:42 Respiratory Effort Normal 11/14/23 10:45 Blood Pressure 168/96 H 11/14/23 10:42 Blood Pressure Position Sitting 11/14/23 10:42 Pulse Oximetry 98 11/14/23 10:42 Oxygen Delivery Method Room Air 11/14/23 10:42 Oxygen Flow Rate 0 11/14/23 10:42 Pain Level 5 11/14/23 10:42 Medical Decision Making This dictation utilizes [id number] dictation software and may contain unedited grammatical errors. 48 y/o M presents to ED today with a chief complaint of L Hand, middle finger pain, especially with flexion, notes some limit to ROM- denies prior trauma, onset one week ago. No evidence of infection, cannot recall any prior open wounds or bites to area, no warmth to touch, NV intact. Patients' medical history: noncontributory. Family and social history: noncontributory. Pertinent exam findings / vital signs include R HAND: Partial limited range of motion right third finger, no redness, no focal nodular swellings in the flexor pulleys, no erythema or warmth to touch, brisk capillary refill, sensation intact, no wrist pain, Tinel's negative. Differential / pathologies of concern include Tendinitis, Trigger Finger, unlikely infectious tenosynovitis. Diagnostic studies of: -XR L Hand - no acute findings. Interventions of: -Finger splint provided. ED Course/Assessment/Plan: Otherwise healthy patient has a 1 week onset of some limited range of motion of the left third finger, no evidence of deformity, no prior trauma or open lesions to the area, do not suspect infectious etiology, possible tendinitis, recommend finger splinting 16/01 and RICE therapy and anti-inflammatories, follow-up with orthopedics with any worsening, return criteria for signs of infection, red streaking up the arm, fever, warmth to touch, any sign of neurovascular compromise. Findings not consistent with fracture, infectious tenosynovitis, neurovascular compromise. Disposition of Tendinitis of flexor tendon of the left hand. Patient verbalized understanding of the plan and return to ED criteria and engaged in shared decision making. Medical Records Medical records reviewed: Yes I reviewed the patient's medical records. Imaging Data Radiologic Study: Attestation: I personally reviewed and interpreted this imaging study as follows: Imaging: X-Ray Radiologist's impression: EXAM: XR HAND LT COMPLETE CLINICAL HISTORY: L 1st MCP pain. TECHNIQUE: 2D digital imaging was performed. Three views. COMPARISON: No exams were available for comparison FINDINGS: BONES: No acute fracture is present. No bony destructive lesion is seen. JOINTS: No dislocation present. No significant degenerative changes. SOFT TISSUE: Normal. IMPRESSION: Unremarkable radiographs of the left hand. Quality:SDOH Health Related Social Needs: No Data to Display PFSH All Active Problems (Updated 11/14/23 @ 11:35 by YEE Kaplan) Tendinitis of flexor tendon of left hand (Acute) S/P tendon repair (Acute 07/27/23) L quadriceps tendon repair Dr Byrd, [facility] Rupture of left quadriceps tendon (Acute ~06/2023) 07/21/23 [facility] Family history of prostate cancer (Chronic) Grandfather, diagnosed in his 50s; father with metastatic prostate cancer in his 70s PTSD (post-traumatic stress disorder) (Acute) Anxiety (Chronic) Chronic low back pain with bilateral sciatica (Acute) Surgical History (Updated 08/04/23 @ 16:00 by Anaid Lopez RN) H/O left knee surgery (~2013) History of cholecystectomy History of lumbar surgery (~2016) Family History (Updated 03/15/19 @ 14:26 by Lawanda Valladares) Mother Diabetes Asthma Social History (Updated 01/14/20 @ 12:13 by Anaid Lopez RN) Smoking/Tobacco Use Status: Never Second Hand Exposure: No Smoking risk assessment performed?: Yes Alcohol Intake: current Alcohol Intake frequency: a few times a week Alcohol type: beer Drug use: Never Substance use type: does not use Caregiver/Support person: No Household members: spouse Housing: house Number of Children: 3 Communication Needs: None Do you need help understanding health information?: Never 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 Pets and animals: Yes Sexually active: Yes Do you think of yourself as: straight/heterosexual Current gender identity: male What is your relationship status?: How often do you talk on the phone with friends or family?: three or more times per week How often do you get together with friends or relatives?: once per week How often do you attend restoration or church services?: 1-3 times per year Panel score (0-1 are the most socially isolated patients): 2 What type of physical activity do you participate in: walking Duration: 30-45 minutes/day Frequency: 3-4 times per week Patricia/Adventism: Yazidism Special patricia needs: No Seatbelt use: always Helmet use: Yes Helmet use: always Drive intox or ride w/intox class a truck driver: No Working smoke detector in home: Yes Fire extinguisher in home: Yes Carbon monox detector in home: Yes Do you feel safe at home: Yes Do you feel safe in your relationship?: Yes
--- NOTE | 2023-11-14 11:18 | DI.RAD_ITS ---
Exam(s) XR HAND LT COMPLETE EXAM: XR HAND LT COMPLETE CLINICAL HISTORY: L 1st MCP pain. TECHNIQUE: 2D digital imaging was performed. Three views. COMPARISON: No exams were available for comparison FINDINGS: BONES: No acute fracture is present. No bony destructive lesion is seen. JOINTS: No dislocation present. No significant degenerative changes. SOFT TISSUE: Normal. IMPRESSION: Unremarkable radiographs of the left hand. DATA REPOSITORY: RADIATION DOSE DELIVERED:
== END 2023-11-14 11:43 | disposition home or self-care (01) ==
PROVIDERS: Emergency Provider Physician Assistant; PCP Physician Assistant
DX: M67.844 Other specified disorders of tendon, left hand (principal); M79.642 Pain in left hand
CPT/HCPCS: 29130; 99283; 73130